=== PATIENT | female | born 1960 | race Caucasian/White ===

== ENCOUNTER 2017-01-13 12:20 | Emergency (ER) | payer MEDICAID ==
[2017-01-13 12:45] VITALS: RESP 16; O2SAT 97
[2017-01-13] MEDS ORDERED: Sodium Chloride 0.9% 1,000 ML IV ONE (12:47)
--- NOTE | 2017-01-13 13:15 | RAD ---
HISTORY: chest pain COMPARISON: 08/02/2014. TECHNIQUE: Chest PA and lateral FINDINGS: LUNGS: No active pulmonary disease. PLEURA: No significant pleural effusion identified. No pneumothorax apparent. CARDIOVASCULAR: No radiographic findings to suggest acute or significant cardiovascular disease. OSSEOUS STRUCTURES: No significant abnormalities. VISUALIZED UPPER ABDOMEN: Normal. OTHER FINDINGS: None. IMPRESSION: No active disease. No significant interval change compared to the prior examination(s).
--- NOTE | 2017-01-13 13:16 | RAD ---
PROCEDURE: Radiographs of the Right Shoulder HISTORY: pain No antecedent history of trauma provided. COMPARISON: No prior. FINDINGS: BONES: Normal. No fracture. JOINTS: Acromioclavicular degenerative changes. Preserved glenohumeral relationship. SOFT TISSUES: Normal. OTHER FINDINGS: None. IMPRESSION: No acute findings related to/accounting for the clinical presentation. Acromioclavicular degenerative change.
--- NOTE | 2017-01-13 13:31 | C.PDOC ---
History Of Present Illness 56 year old patient, with a past medical history of hypercholesterolemia, hypertension and arthritis, presents to the ED complaining of upper back pain and right sided chest pain for the past week. Patient also complains of nausea. The pain is radiating down her right arm. The back pain is described as achy. The chest pain is described as intermittent, sharp and burning. Patient denies palpitations, shortness of breath, vomiting, fever, cough, numbness or weakness. Time Seen by Provider: 01/13/17 12:30 Chief Complaint (Nursing): Chest Pain History Per: Patient History/Exam Limitations: no limitations Onset/Duration Of Symptoms: Other (1 week) Current Symptoms Are (Timing): Still Present Context: Other Severity: Mild Pain Scale Rating Of: 3 Quality: Aching, "Pain" Associated Symptoms: Nausea Alleviating Factors: None Recent travel outside of the [place]: No Past Medical History Reviewed: Historical Data, Nursing Documentation, Vital Signs Vital Signs: Last Vital Signs Temp 98.3 F 01/13/17 12:41 Pulse 92 H 01/13/17 12:41 Resp 16 01/13/17 12:41 BP 139/73 01/13/17 12:41 Pulse Ox 97 01/13/17 12:41 - Medical History PMH: Arthritis, HTN, Hypercholesterolemia Family History: States: Unknown Family Hx - Social History Hx Tobacco Use: No Hx Alcohol Use: No Hx Substance Use: No - Immunization History Hx Tetanus Toxoid Vaccination: No Hx Influenza Vaccination: Yes Hx Pneumococcal Vaccination: No Review Of Systems Except As Marked, All Systems Reviewed And Found Negative. Constitutional: Negative for: Fever Cardiovascular: Positive for: Chest Pain (right sided). Negative for: Palpitations Respiratory: Negative for: Cough, Shortness of Breath Gastrointestinal: Positive for: Nausea. Negative for: Vomiting Musculoskeletal: Positive for: Arm Pain (right), Back Pain (lower) Neurological: Negative for: Weakness, Numbness Physical Exam - Physical Exam Appears: Non-toxic, No Acute Distress Skin: Warm, Dry Head: Atraumatic, Normacephalic Eye(s): bilateral: Normal Inspection, EOMI Oral Mucosa: Moist Neck: Normal ROM, Supple Chest: Symmetrical, No Tenderness Cardiovascular: Rhythm Regular Respiratory: Normal Breath Sounds, No Rales, No Rhonchi, No Wheezing Gastrointestinal/Abdominal: Soft, No Tenderness Back: Normal Inspection, No CVA Tenderness, No Vertebral Tenderness, Other ( mild reproducible tenderness to the trapezius) Extremity: Normal ROM Neurological/Psych: Oriented x3, Normal Motor, Normal Sensation Gait: Steady ED Course And Treatment ECG: Interpreted By Me, Viewed By Me ECG Rhythm: Sinus Rhythm ECG Interpretation: Normal Rate From EC (bpm) O2 Sat by Pulse Oximetry: 97 (room air) Pulse Ox Interpretation: Normal Medical Decision Making Medical Decision Making: Impression: 56 y/o female with upper back pain and right sided chest pain Plan: * EKG * Labs * Chest x-ray * IV fluids, Toradol * R shoulder x-ray * Reassess and disposition Progress: - PA / REFRIGERATION ENGINE OPERATOR / Resident Statement MD/DO has reviewed & agrees with the documentation as recorded. - Scribe Statement The provider has reviewed the documentation as recorded by the Scribe Veronica Macias All medical record entries made by the Scribe were at my direction and personally dictated by me. I have reviewed the chart and agree that the record accurately reflects my personal performance of the history, physical exam, medical decision making, and the department course for this patient. I have also personally directed, reviewed, and agree with the discharge instructions and disposition.
[2017-01-13 13:33] LABS: BASO # 0.1 K/uL (0.0-0.2); BASO % 0.5 % (0.0-2.0); EOS # 0.1 K/uL (0.0-0.7); EOS % 0.5 % (0.0-4.0); HEMATOCRIT 42.2 % (34.0-47.0); LYMPH % 7.4 % (20.0-40.0); MEAN CORPUSCULAR HEMOGLOBIN 27.9 pg (27.0-31.0); MEAN CORPUSCULAR HGB CONC 32.8 g/dL (33.0-37.0); MEAN PLATELET VOLUME 8.4 fL (7.2-11.7); MONO # 0.6 K/uL (0.0-0.8); MONO % 4.3 % (0.0-10.0); PLATELET COUNT 247 K/uL (130-400); RED CELL DISTRIBUTION WIDTH 13.5 % (11.5-14.5); WHITE BLOOD COUNT 13.4 K/uL (4.8-10.8)
[2017-01-13 13:40] LABS: RBC URINE 1 /hpf (0-3); URINE BACTERIA RARE (<OCC); URINE BILIRUBIN NEGATIVE (NEGATIVE); URINE BLOOD NEGATIVE (NEGATIVE); URINE COLOR Yellow (YELLOW); URINE GLUCOSE (UA) NORMAL (Normal); URINE KETONE NEGATIVE (NEGATIVE); URINE LEUKOCYTE ESTERASE NEG Leu/uL (Negative); URINE PROTEIN NEGATIVE (NEGATIVE); URINE UROBILINOGEN NORMAL mg/dL (0.2-1.0); WBC URINE 2 /hpf (0-5)
--- NOTE | 2017-01-13 13:41 | C.PDOC ---
History Of Present Illness 56 year old patient, with a past medical history of hypercholesterolemia, hypertension and arthritis, presents to the ED complaining of upper back pain and right sided chest pain for the past week. Patient also complains of nausea. The pain is radiating down her right arm. The back pain is described as achy. The chest pain is described as intermittent, sharp and burning. Patient denies palpitations, shortness of breath, vomiting, fever, cough, numbness or weakness. Time Seen by Provider: 01/13/17 12:30 Chief Complaint (Nursing): Chest Pain History Per: Patient History/Exam Limitations: no limitations Onset/Duration Of Symptoms: Other (1 week) Current Symptoms Are (Timing): Still Present Context: Other Severity: Mild Pain Scale Rating Of: 3 Quality: Sharp, Burning, Aching, "Pain" Associated Symptoms: Nausea Alleviating Factors: None Recent travel outside of the [place]: No Past Medical History Reviewed: Historical Data, Nursing Documentation, Vital Signs Vital Signs: Last Vital Signs Temp 98.4 F 01/13/17 14:47 Pulse 94 H 01/13/17 14:47 Resp 16 01/13/17 14:47 BP 116/74 01/13/17 14:47 Pulse Ox 97 01/13/17 14:47 - Medical History PMH: Arthritis, HTN, Hypercholesterolemia Family History: States: Unknown Family Hx - Social History Hx Tobacco Use: No Hx Alcohol Use: No Hx Substance Use: No - Immunization History Hx Tetanus Toxoid Vaccination: No Hx Influenza Vaccination: Yes Hx Pneumococcal Vaccination: No Review Of Systems Except As Marked, All Systems Reviewed And Found Negative. Constitutional: Negative for: Fever Cardiovascular: Positive for: Chest Pain (right sided). Negative for: Palpitations Respiratory: Negative for: Cough, Shortness of Breath Gastrointestinal: Positive for: Nausea. Negative for: Vomiting Musculoskeletal: Positive for: Arm Pain (right), Back Pain (lower) Neurological: Negative for: Weakness, Numbness Physical Exam - Physical Exam Appears: Non-toxic, No Acute Distress Skin: Warm, Dry, No Diaphoretic, No Pale, No Ecchymosis Head: Atraumatic, Normacephalic Eye(s): bilateral: Normal Inspection, EOMI Nose: Normal Oral Mucosa: Moist Neck: Normal ROM, Supple Chest: Symmetrical, No Tenderness Cardiovascular: Rhythm Regular Respiratory: Normal Breath Sounds, No Rales, No Rhonchi, No Wheezing Gastrointestinal/Abdominal: Soft, No Tenderness Back: Normal Inspection, No CVA Tenderness, No Vertebral Tenderness, Other ( mild reproducible tenderness to the trapezius) Extremity: Bilateral: Atraumatic, Normal Color And Temperature, Normal ROM Neurological/Psych: Oriented x3, Normal Speech, Normal Motor, Normal Sensation Gait: Steady ED Course And Treatment - Laboratory Results Result Diagrams: 01/13/17 13:27 01/13/17 13:27 Lab Interpretation: No Acute Changes ECG: Interpreted By Me, Viewed By Me ECG Rhythm: Sinus Rhythm ECG Interpretation: No Acute Changes Rate From EC O2 Sat by Pulse Oximetry: 97 (room air) Pulse Ox Interpretation: Normal Medical Decision Making Medical Decision Making: Impression: 56 y/o female with upper back pain and right sided chest pain Plan: * EKG * Labs * Chest x-ray * IV fluids, Toradol * R shoulder x-ray Progress: EKG is NS at 93 bpm with normal axis, no acute ST-T changes CXR shows no acute disease. Shoulder xray shows arthritic changes Labs reviewed , negative troponin Given the patient history, exam and negative findings on diagnostic tests after week of symptoms low clinical suspicion for ACS, symptoms likely musculoskeletal. Patient was reevaluated and remained well, alert and oriented in no distress. She reports improvement of pain with Toradol and denies any chest pain or SOB. Patient feels better and comfortable going home. I explained lab results and recommend analgesics. Plan is to discharge and have patient follow up with PCP Dr Carpenter. Disposition Counseled Patient/Family Regarding: Diagnosis, Need For Followup, Rx Given - Disposition Referrals: Christal Carpenter [Staff Provider] - Disposition: HOME/ ROUTINE Disposition Time: 14:21 Condition: STABLE Additional Instructions: Vaya a villegas mdico o la clnica en 2-5 martin sin falta, para mas evaluacin. [place] los medicamentos cindy indicado. Volver a la justus de emergencia en cualquier momento si los sntomas persisten o empeoran. Prescriptions: Diclofenac Sodium [Voltaren] 100 gm TP Q12 #1 gel..gram. Ondansetron ODT [Zofran ODT] 1 odt PO BID PRN #6 odt PRN Reason: Nausea/Vomiting Instructions: Musculoskeletal Pain (ED) Print Language: CITIZEN OF [place] - POA Present On Arrival: None - Clinical Impression Clinical Impression: Arthralgia, Musculoskeletal pain - PA / SCRIP CLERK / Resident Statement MD/DO has reviewed & agrees with the documentation as recorded. - Scribe Statement The provider has reviewed the documentation as recorded by the Scribe Veronica Macias All medical record entries made by the Scribe were at my direction and personally dictated by me. I have reviewed the chart and agree that the record accurately reflects my personal performance of the history, physical exam, medical decision making, and the department course for this patient. I have also personally directed, reviewed, and agree with the discharge instructions and disposition.
[2017-01-13 13:42] LABS: CHLORIDE 98 mmol/L (98-107)
[2017-01-13 13:43] LABS: POTASSIUM 3.9 mmol/L (3.6-5.2); SODIUM 137 mmol/L (132-148)
[2017-01-13 13:45] LABS: ALB/GLOB RATIO 1.7 (1.0-2.1); AST/SGOT 25 U/L (14-36); BILIRUBIN,TOTAL 0.2 mg/dL (0.2-1.3); CARBON DIOXIDE 26 mmol/L (22-30); GFR AFRICAN-AMERICAN > 60; TOTAL PROTEIN 8.1 g/dL (6.3-8.3)
[2017-01-13 13:46] LABS: ALKALINE PHOSPHATASE 96 U/L (38-126); ALT/SGPT 16 U/L (9-52); BLOOD UREA NITROGEN 13 mg/dL (7-17); CALCIUM 9.4 mg/dl (8.6-10.4); GLUCOSE,RANDOM 116 mg/dL (65-105)
[2017-01-13 14:33] LABS: EOSINOPHIL 1 % (0-4); NEUTROPHIL 89 % (50-75); TOTAL CELLS COUNTED 100
[2017-01-13 14:49] VITALS: BP 116/74; PULSE 94; TEMP 98.4
[2017-01-13] MEDS ORDERED: Sodium Chloride 0.9% 1,000 ML ONE (14:51)
--- NOTE | 2017-01-16 07:44 | CARD ---
APPROVED REPORT EKG Measurement Heart [id number] <Conclusion> Normal sinus rhythm Normal ECG
== END 2017-01-13 14:54 | disposition home or self-care (01) ==
LOC: C.ER 12:20
DX: M79.1 Myalgia (principal); M79.601 Pain in right arm
CPT/HCPCS: 71020; 73030; 80053; 81001; 83880; 84484; 85025; 85610; 85730; 93005; 96374; 99285; J1885; J7040

== ENCOUNTER 2017-09-22 11:01 | Emergency (ER) | payer MEDICAID ==
[2017-09-22 11:14] VITALS: BP 128/75; PULSE 70; RESP 18; TEMP 98.6; O2SAT 100
--- NOTE | 2017-09-22 11:26 | C.PDOC ---
History Of Present Illness 57 y/o female presents to the ER complaining of occassional brief tingling sensation on the left side of scalp and face which has been present for the past 3 months. Patient reports that she has a history of mild headaches. Patient states that she went to see a neurologist. Patient had a recent CAT Scan and MRI done in the past year. Time Seen by Provider: 09/22/17 11:18 Chief Complaint (Nursing): Headache History Per: Patient History/Exam Limitations: no limitations Current Symptoms Are (Timing): Still Present Severity: Moderate Past Medical History Reviewed: Historical Data, Nursing Documentation, Vital Signs Vital Signs: Last Vital Signs Temp 98.6 F 09/22/17 11:11 Pulse 70 09/22/17 11:11 Resp 18 09/22/17 11:11 BP 128/75 09/22/17 11:11 Pulse Ox 100 09/22/17 13:46 - Medical History PMH: Arthritis, HTN, Hypercholesterolemia, Migraine Surgical History: No Surg Hx Family History: States: No Known Family Hx - Social History Hx Tobacco Use: No Hx Alcohol Use: No Hx Substance Use: No - Immunization History Hx Tetanus Toxoid Vaccination: No Hx Influenza Vaccination: Yes Hx Pneumococcal Vaccination: No Review Of Systems Except As Marked, All Systems Reviewed And Found Negative. Neurological: Positive for: Other (tingling sensation on left side of scalp and face). Negative for: Weakness, Numbness Physical Exam - Physical Exam Appears: Non-toxic, No Acute Distress Skin: Normal Color, Warm, No Rash Head: Atraumatic, Normacephalic Eye(s): bilateral: Normal Inspection, PERRL Nose: Normal Oral Mucosa: Moist Neck: Supple Chest: Symmetrical Cardiovascular: Rhythm Regular Respiratory: Normal Breath Sounds, No Accessory Muscle Use Extremity: Normal ROM Neurological/Psych: Oriented x3, Normal Speech, Normal Cognition, Normal Motor, Normal Sensation ED Course And Treatment O2 Sat by Pulse Oximetry: 100 (RA) Pulse Ox Interpretation: Normal Medical Decision Making Medical Decision Making: minor L scalp tingling sensations for 3 months, normal scalp has d/w NEuro prior- normal head CT and MRI in past year. good med compliance with DECREASED freq of migrain BUNCH's. no indication for repeat head CT reassured and opt f/u with Neuro encouraged. Disposition Doctor Will See Patient In The: Office Counseled Patient/Family Regarding: Studies Performed, Diagnosis - Disposition Referrals: Christal Carpenter [Staff Provider] - Disposition: HOME/ ROUTINE Disposition Time: 11:25 Condition: GOOD Additional Instructions: sigue cande medicamentos normales, y sigue con villegas Neurologo cindy necessario. Instructions: Migraine Headache (ED) Forms: [employer] (Congolese) Print Language: YORUBA - Clinical Impression Clinical Impression: Facial tingling - Scribe Statement The provider has reviewed the documentation as recorded by the Aditya Machuca Provider Attestation: All medical record entries made by the Aditya were at my direction and personally dictated by me. I have reviewed the chart and agree that the record accurately reflects my personal performance of the history, physical exam, medical decision making, and the department course for this patient. I have also personally directed, reviewed, and agree with the discharge instructions and disposition.
== END 2017-09-22 11:41 | disposition home or self-care (01) ==
LOC: C.ER 11:01
DX: R20.2 Paresthesia of skin (principal)